=== PATIENT | male | born 1955 | race Two or more races ===

== ENCOUNTER 2019-10-16 15:08 | Emergency (ER) | payer BC, OTHER ==
[2019-10-16 15:20] VITALS: BP 130/82
--- NOTE | 2019-10-16 15:36 | UC ---
Eye Complaint HPI - HPI Summary HPI Summary: 5 DAYS OF URI SYMPTOMS INCLUDING COUGH, CONGESTION, FATIGUE. STATES THESE SYMPTOMS ARE ALL IMPROVING BUT THIS MORNING HE WOKE UP WITH BILATERAL EYES RED AND IRRITATED WITH PURULENT DRAINAGE. NO VISUAL DISTURBANCES, HEADACHE, PHOTOPHOBIA. HE DOES WEAR CONTACT LENSES. - History of Current Complaint Chief Complaint: UCEye Stated Complaint: eye IRRITATION Time Seen by Provider: 10/16/19 15:17 Hx Obtained From: Patient Onset/Duration: Gradual Onset, Lasting Hours, Still Present Timing: Constant Severity Initially: Moderate Severity Currently: Moderate Pain Intensity: 0 Pain Scale Used: 0-10 Numeric Location of Injury: Conjunctiva Aggravating Factor(s): Nothing Alleviating Factor(s): Nothing Associated Signs And Symptoms: Positive: Drainage (Purulent). Negative: Photophobia, Vision Impairment Bilateral, Fever, Swelling - Allergies/Home Medications Allergies/Adverse Reactions: Allergies Allergy/AdvReac Type Severity Reaction Status Date / Time No Known Allergies Allergy Verified 10/16/19 15:14 PMH/Surg Hx/FS Hx/Imm Hx Previously Healthy: Yes - Surgical History Surgical History: None - Family History Known Family History: Positive: Non-Contributory - Social History Alcohol Use: Daily Alcohol Amount: 1-2 glasses of wine Substance Use Type: None Smoking Status (MU): Never Smoked Tobacco Review of Systems All Other Systems Reviewed And Are Negative: Yes Constitutional: Positive: Negative Eyes: Positive: Drainage, Eye Redness. Negative: Blurred Vision, Photophobia ENT: Positive: Nasal Discharge Respiratory: Positive: Cough Cardiovascular: Positive: Negative Gastrointestinal: Positive: Negative Physical Exam Triage Information Reviewed: Yes Appearance: Well-Appearing, No Pain Distress, Well-Nourished Vital Signs: Initial Vital Signs Temp 98.0 F 10/16/19 15:14 Pulse 57 10/16/19 15:14 Resp 18 10/16/19 15:14 BP 130/82 10/16/19 15:14 Pulse Ox 97 10/16/19 15:14 Vital Signs Reviewed: Yes Eyes: Positive: Conjunctiva Inflamed - BILATERAL, Discharge - PURULENT DRAINAGE BILATERAL EYES, Other: - PERRL, EOMI ENT: Positive: Hearing grossly normal Neck: Positive: Supple Respiratory: Positive: No respiratory distress, No accessory muscle use Cardiovascular: Positive: Pulses Normal Abdomen Description: Positive: Soft Musculoskeletal: Positive: No Edema Neurological: Positive: Alert Psychological: Positive: Age Appropriate Behavior Skin: Negative: Rashes Eye Complaint Course/Dx - Differential Dx/Diagnosis Provider Diagnosis: Bilateral conjunctivitis Discharge ED - Sign-Out/Discharge Documenting (check all that apply): Patient Departure All imaging exams completed and their final reports reviewed: No Studies - Discharge Plan Condition: Stable Disposition: HOME Prescriptions: Ciprofloxacin 0.3% OPTH.ROMANA* [Cipro 0.3% Opth*] 1 drop BOTH EYES Q4H #1 btl Patient Education Materials: Conjunctivitis (ED) Referrals: Fernando Rdz MD [Primary Care Provider] - If Needed Lenny Cat MD [Medical Doctor] - If Needed Additional Instructions: YOU HAVE BILATERAL PINKEYE. RX FOR ANTIBIOTIC EYE DROPS SENT TO [facility] IN [place]. INSTILL ONE DROP IN EACH EYE EVERY 4 HOURS WHILE AWAKE. USE UNTIL YOUR SYMPTOMS ARE GONE AND THEN FOR AN ADDITIONAL 1 OR 2 DAYS. PRACTICE GOOD HAND HYGIENE THIS CONDITION IS HIGHLY CONTAGIOUS. FOLLOW-UP WITH AN EYE DOCTOR IF YOUR SYMPTOMS ARE NOT IMPROVING EXPECTED OVER THE NEXT FEW DAYS. NO CONTACT LENS USE UNTIL SYMPTOMS ARE COMPLETELY RESOLVED. THROW YOUR CURRENT CONTACT LENSES IN THE GARBAGE. - Billing Disposition and Condition Condition: STABLE Disposition: Home
== END 2019-10-16 15:40 | disposition home or self-care (01) ==
LOC: UCEAST 15:08
DX: H10.9 Unspecified conjunctivitis (principal); R09.81 Nasal congestion; R05 Cough
CPT/HCPCS: 99212; G0463

== ENCOUNTER 2019-10-20 09:28 | Emergency (ER) | payer BC ==
[2019-10-20 09:35] VITALS: BP 138/83
--- NOTE | 2019-10-20 10:17 | ED ---
Respiratory - HPI Summary HPI Summary: 64-year-old white male presents with worsening cough associated with URI symptoms 10 days. Patient states cough URI symptoms or improving the cough is worsening with pleuritic chest pain and yellow green sputum. - History of Current Complaint Chief Complaint: UCGeneralIllness Stated Complaint: URI Time Seen by Provider: 10/20/19 09:42 Hx Obtained From: Patient Onset/Duration: Lasting Days Initial Severity: Moderate Current Severity: Moderate Pain Intensity: 1 Character: Cough (Productive) Sputum Amount: Moderate Sputum Color: Yellow Aggravating Factor(s): Nothing Alleviating Factor(s): Nothing - Allergy/Home Medications Allergies/Adverse Reactions: Allergies Allergy/AdvReac Type Severity Reaction Status Date / Time No Known Allergies Allergy Verified 10/20/19 09:35 PMH/Surg Hx/FS Hx/Imm Hx Previously Healthy: Yes Infectious Disease History: No Infectious Disease History: Denies: Traveled Outside the [place] in Last 30 Days - Family History Known Family History: Positive: Non-Contributory - Social History Alcohol Use: Daily Alcohol Amount: 1-2 glasses of wine Substance Use Type: Reports: None Smoking Status (MU): Never Smoked Tobacco Review of Systems Constitutional: Negative Eyes: Negative ENT: Negative Respiratory: Negative Positive: Cough Gastrointestinal: Negative Genitourinary: Negative Musculoskeletal: Negative Skin: Negative Neurological: Negative Psychological: Normal All Other Systems Reviewed And Are Negative: Yes Physical Exam - Summary Physical Exam Summary: Vital Signs Reviewed: Yes Eye Exam: Normal Eyes: Positive: Conjunctiva Clear ENT: Positive: Normal ENT inspection Neck: Positive: Supple Respiratory Exam: Normal Respiratory: Positive: mild inspiratory wheeze pronounced in L lung base Cardiovascular Exam: Normal Cardiovascular: Positive: RRR Abdomen: NT/ND Musculoskeletal Exam: Normal Neurological Exam: Normal Psychological Exam: Normal Skin Exam: Normal Triage Information Reviewed: Yes Vital Signs On Initial Exam: Initial Vitals Temp Pulse Resp BP Pulse Ox 36.6 C 67 16 138/83 98 10/20/19 09:32 10/20/19 09:32 10/20/19 09:32 10/20/19 09:32 10/20/19 09:32 Vital Signs Reviewed: Yes Diagnostics - Vital Signs Vital Signs Temp Pulse Resp BP Pulse Ox 10/20/19 09:32 36.6 C 67 16 138/83 98 - Laboratory Lab Statement: Any lab studies that have been ordered have been reviewed, and results considered in the medical decision making process. Disposition - Diagnoses Provider Diagnoses: Bronchitis Discharge ED - Sign-Out/Discharge Documenting (check all that apply): Patient Departure All imaging exams completed and their final reports reviewed: No Studies - Discharge Plan Condition: Stable Disposition: HOME Prescriptions: Azithromycin TAB* [Zithromax TAB (Z-SHRUTI) 250 mg #6 tabs] 250 mg PO DAILY 5 Days #1 shruti Patient Education Materials: Acute Bronchitis (ED) Referrals: Fernando Rdz MD [Primary Care Provider] - - Billing Disposition and Condition Condition: STABLE Disposition: Home
== END 2019-10-20 10:14 | disposition home or self-care (01) ==
LOC: UCEAST 09:28
DX: J40 Bronchitis, not specified as acute or chronic (principal)
CPT/HCPCS: 99212; G0463